=== PATIENT | female | born 1945 | race Two or more races ===

== ENCOUNTER 2018-03-30 18:42 | Emergency (ER) | payer MEDICARE, OTHER ==
[~2018-03-30] VITALS: Ht 157.5 cm; Wt 77.1 kg
[2018-03-30 19:10] VITALS: BP 164/80
[2018-03-30] MEDS ORDERED: carBAMazepine 200mg tab ORAL ONE (19:15)
--- NOTE | 2018-03-30 19:22 | Emergency Room Report ---
History of Present Illness General Chief Complaint: Pain Source: Patient Present Illness HPI patient is a 72-year-old female with past medical history of hypertension controlled with medication, here complaining of one week of exacerbation of unilateral facial pain. Patient claims that this pain is intermittent and has been dealing with for the past 20 years. Patient is sensitive to touch on the affected side, complains of increased pain when opening and closing mouth, complains of recent changes on that side, has been taking Advil with no improvement. Denies bilateral or unilateral weakness/generalized weakness, denies recent head trauma or history of stroke, patient is in tears when talking about facial pain describing the pain 10 out of 10 tingling without radiation. Denies denies chest pain, shortness of breath, palpitation, headache patient states that her primary doctor and giving her Advil with no improvement. Patient also reports anxiety and her pain worse. Denies SI Allergies: Coded Allergies: No Known Allergies (Unverified , 03/30/18) Patient History Past Medical History: see triage record Pertinent Family History: unable to obtain Last Menstrual Period: NA Now: No Immunizations: UTD Reviewed Nursing Documentation: PMH: Agreed; PSxH: Agreed Nursing Documentation-PMH Past Medical History: No History, Except For Hx Cardiac Problems: Yes - hypercholesterol Hx Hypertension: Yes Hx Pacemaker: No Review of Systems All Other Systems: negative except mentioned in HPI Physical Exam Vital Signs Date Time Temp Pulse Resp B/P (MAP) Pulse Ox O2 Delivery O2 Flow Rate FiO2 03/30/18 18:47 98.7 81 18 176/79 94 Room Air 98.8 Sp02 EP Interpretation: reviewed, normal General Appearance: alert, GCS 15, non-toxic, moderate distress - agent in tears Head: normocephalic, atraumatic, other - Patient very sensitive to touch the left side of her face Eyes: bilateral eye normal inspection, bilateral eye PERRL ENT: normal ENT inspection, hearing grossly normal, normal pharynx Neck: normal inspection, full range of motion, supple, thyroid normal Respiratory: normal inspection, chest non-tender, lungs clear, normal breath sounds, no rhonchi, no respiratory distress, no retraction, no accessory muscle use Cardiovascular #1: normal inspection, no edema, no JVD, no murmur Gastrointestinal: normal inspection, soft Rectal: deferred Genitourinary: deferred Musculoskeletal: normal inspection, back normal, digits/nails normal Neurologic: normal inspection, alert, oriented x3, responsive, top frame fitter III-XII nml as tested, other - Patient elicits pain with opening and closing mouth on the left side of face and elicits pain when touching the left side of face Psychiatric: normal inspection, judgement/insight normal, memory normal Skin: normal inspection, normal color, no rash, warm/dry Lymphatic: normal inspection, no adenopathy Medical Decision Making PA Attestation all diagnosis, orders, treatment plans were discussed and reviewed with my supervising physician Dr. Bojorquez Diagnostic Impression: Primary Impression: Trigeminal neuralgia of left side of face Additional Impression: HTN (hypertension) ER Course patient is a 72-year-old female with past medical history of hypertension controlled with medication, here complaining of one week of exacerbation of unilateral facial pain. Patient claims that this pain is intermittent and has been dealing with for the past 20 years. Patient is sensitive to touch on the affected side, complains of increased pain when opening and closing mouth, complains of recent changes on that side, has been taking Advil with no improvement. Denies bilateral or unilateral weakness/generalized weakness, denies recent head trauma or history of stroke, patient is in tears when talking about facial pain describing the pain 10 out of 10 tingling without radiation. Denies denies chest pain, shortness of breath, palpitation, headache patient states that her primary doctor and giving her Advil with no improvement. Patient also reports anxiety and her pain worse. Denies SI Ddx considered but are not limited to cluster headache, trigeminal neuralgia, TIA, hypertensive emergency Vital signs: are WNL, pt. is afebrile H&PE are most consistent with trigeminal neuralgia ORDERS:EKG, tegratol , ED INTERVENTIONS none DISCHARGE: At this time pt. is stable for d/c to home. Will provide printed patient care instructions, and any necessary prescriptions. Care plan and follow up instructions have been discussed with the patient prior to discharge. EKG Diagnostic Results Rate: normal Rhythm: NSR ST Segments: no acute changes ASA given to the pt in ED: No Last Vital Signs Date Time Temp Pulse Resp B/P (MAP) Pulse Ox O2 Delivery O2 Flow Rate FiO2 03/30/18 18:47 98.7 81 18 176/79 94 Room Air 98.8 Disposition: HOME, SELF-CARE Condition: Stable Patient Instructions: Hypertension, Trigeminal Neuralgia Additional Instructions: take medication as directed, follow-up with primary care physician for continuation of medication, consider going to a neurologist, if dizziness return to the emergency room Pierre Reddy Mar 30, 2018 19:22
[2018-03-30] MEDS ORDERED: TEGRETOL200 MG PO (20:14)
[2018-03-30 20:24] VITALS: BP 162/64
[2018-03-30 20:25] VITALS: BP 164/80
== END 2018-03-30 20:30 | disposition home or self-care (01) ==
LOC: EMR 20:30
DX: G50.0 Trigeminal neuralgia (principal); I10 Essential (primary) hypertension; E78.00 Pure hypercholesterolemia, unspecified
CPT/HCPCS: 93005; 99283